=== PATIENT | male | born 1955 ===

== ENCOUNTER → 2019-06-19 | Outpatient (CLI) | payer OTHER ==
[~2019-06-19] MED LIST: ERYT.5TO OD; HYDACE5 PO; NAPR500 PO; OXYACE5T PO
[2019-06-22 09:45] LABS: Stool Occult Bld Immuno 1 Negative (NEGATIVE)
== END ==
LOC: LAB 13:00 → LAB SHORT 13:00
PROVIDERS: Nurse Practitioner Family
DX: Z12.11 Encounter for screening for malignant neoplasm of colon (principal)
CPT/HCPCS: G0328